=== PATIENT | male | born 1990 | race African-American/Black ===

== ENCOUNTER 2023-02-10 15:01 | Inpatient (IN) ==
--- NOTE | 2023-02-10 15:14 | Emergency Department Note ---
Impression & Plan Depression with suicidal ideation, Alcohol abuse, Acute hypokalemia ED Provider Note NAME: CHARLY PEREA AGE: 32 SEX: M : 1990 ARRIVES VIA: Walk-In INFORMANT: Patient, ED PROVIDER(S): Louie Waters MD CHIEF COMPLAINT: Concern for mental wellness MEDICAL DECISION MAKING: Patient presents due to concern for mental wellness. IV was established and blood work is obtained along with urinalysis urine drug screen as well as toxicology screens. Patient was ordered IV fluids. Patient was deemed clinically sober after a period of monitoring as the patient's alcohol was elevated at 200. Patient has mild leukopenia which may be secondary to the patient's chronic HIV history. Patient's H&H and platelet count are unremarkable. Kidney function unremarkable mild transaminitis likely secondary to the patient's drinking. TSH is normal. The patient was ordered potassium replacement. Patient was accepted to [facility] for voluntary inpatient treatment. Prior /Outside records reviewed: None Differential diagnosis: Mood disorder, infection, hypoglycemia, electrolyte abnormalities, dehydration, medication side effect among others were considered. Diagnostics, as interpreted by me: ECG: None Medical decision rules: Suicide risk assessment HPI: Patient presents due to concern for mental wellness issue. The patient states that he was thinking about overdosing on medications. Patient is currently masters PhD student who states that setting has been difficult and that he is considering dropping out. The patient has been here for over a year. Patient states that he has not been taking his medications including his antivirals for HIV. Patient states that a week ago he did attempt overdose taking pills as well as foods that he is allergic to. Patient denies any HI. The patient reports that he has been hearing sounds as though some days knocking at the door but when he goes to investigate this there is nobody there and more when asking someone else he was told that there was no knock on the door. Patient denies any HI. The patient does drink alcohol and believes that he has been drinking 4 gallons of alcohol since Thursday. Prior to this patient had not been drinking for 2 weeks. Patient denies any tobacco or drug use. Patient is originally from [place]. Patient denies any access to guns or weapons. Patient states that his sleep has been poor and his appetite has been poor as well. PAST MEDICAL HISTORY: See Below PAST SURGICAL HISTORY: See Below SOCIAL HISTORY: See Below HOME MEDICATIONS: See Below ALLERGIES: See Below VITALS: See Below PHYSICAL EXAMINATION: GENERAL: NAD, non-toxic. EYE EXAM: Normal conjunctiva. PERRL, no anisocoria and EOM's grossly intact w/o pain. OROPHARYNX: Moist mucus membranes, grossly normal dentition. NECK: Supple, no nuchal rigidity, no adenopathy, non-tender. No signs of meningismus. FROM of the neck with good chin to chest and neck extension. No stridor. LUNGS: Clear to auscultation. Normal chest wall mechanics. HEART: NSR, no MRG. ABDOMEN: Abdomen soft, non-tender, no masses, no rebound or guarding. BACK: No CVA TTP. SKIN: No rashes and no bruising. UPPER EXTREMITIES: Upper extremities are grossly normal. LOWER EXTREMITIES: Grossly normal, no edema. NEURO EXAM: A&O x3, cranial nerves II-XII grossly intact, normal speech, moves all 4 extremities. Psych: Positive SI with plan, denies HI, auditory hallucinations Past Med/Surg History Medical History (Updated 02/11/23 @ 17:46 by Louie Waters MD) HIV (human immunodeficiency virus infection) Social History Smoking Status: Never smoker Preferred Language: Uzbek Communication Ability: Effective Plush Finisher Required: No Beliefs That Will Affect Care: None Feels Safe at Home: No Gender Identity: Male Assistive Devices: None Allergies Allergies Allergy/AdvReac Type Severity Reaction Status Date / Time No Known Allergies Allergy Unverified 02/10/23 22:15 Home Meds Home Medications Medication Instructions Recorded Confirmed bictegravir 50 mg-emtricitabine 1 tab PO DAILY 02/10/23 02/10/23 200 mg-tenofovir alafenam 25 mg tablet (Biktarvy) pravastatin 40 mg tablet 40 mg PO DAILY 02/10/23 02/10/23 Results & Data (ED) Vital Signs Vital Signs - 24 hr 02/10/23 19:20 02/10/23 21:41 Temperature 36.7 C Temperature Source Oral Pulse Rate [Left Finger] 89 Pulse Rhythm [Left Finger] Regular Pulse Strength [Left Finger] Normal Respiratory Rate 18 Respiratory Effort / Characteristics Non-Labored Respiratory Depth Normal Respiratory Pattern Regular Blood Pressure [Right Arm] 138/89 Blood Pressure Mean [Right Arm] 105 Blood Pressure Position [Right Arm] Sitting Pulse Oximetry 98 Oxygen Delivery Method Room Air Room Air Home Medications Current Medication List: was personally reviewed by me Laboratory Data Attestation: I reviewed the patient's lab results. 02/10/23 15:50 02/11/23 08:24 Lab Results 02/10/23 02/10/23 02/10/23 Range/Units 15:50 15:50 15:50 WBC 4.18 L (4.8-10.8) K/ul RBC 5.72 (4.70-6.10) M/uL Hgb 17.5 (14.0-18.0) g/dl Hct 49.1 (42.0-52.0) % MCV 85.8 (80.0-100.0) fL MCH 30.6 (25.0-34.0) pg MCHC 35.6 (32.0-36.0) g/dL RDW Std Deviation 43.2 (36.4-46.3) fL RDW Coeff of Brett 13.9 (11.5-14.5) % Plt Count 315 (130-400) K/uL MPV 9.7 (9.4-12.4) fL Immature Gran % (Auto) 0.7 % Neut % (Auto) 50.5 % Lymph % (Auto) 30.1 % [place] % (Auto) 12.9 % Eos % (Auto) 4.8 % Baso % (Auto) 1.0 % Neut # (Auto) 2.11 (1.40-6.50) K/uL Lymph # (Auto) 1.26 (1.20-3.40) K/uL [place] # (Auto) 0.54 (0.11-0.59) K/uL Eos # (Auto) 0.20 (0.00-0.50) K/uL Baso # (Auto) 0.04 (0.00-0.20) K/uL Immature Gran # (Auto) 0.03 (0.01-0.20) K/uL Sodium 137 (136-145) mmol/L Potassium 3.1 L (3.5-5.1) mmol/L Chloride 99 (98-107) mmol/L Carbon Dioxide 22 (21-32) mmol/L Anion Gap 16 H (3-11) BUN 4 L (6-23) mg/dl Creatinine 0.99 (0.6-1.4) mg/dl Est Cr Clr Drug Dosing 129.5 ml/min Est GFR ( Amer) 115.5 ml/min Est GFR (Non-Af Amer) 99.7 ml/min BUN/Creatinine Ratio 4.0 L (10-20) Glucose 91 (70-99(Fasting)) mg/dl Calcium 9.4 (8.6-10.3) mg/dl Total Bilirubin 0.8 (0.2-1.0) mg/dl AST 82 H (13-39) U/L ALT 126 H (7-52) U/L Alkaline Phosphatase 82 (34-104) U/L Total Protein 7.6 (6.0-8.3) gm/dl Albumin 4.2 (3.4-5.0) gm/dl Globulin 3.4 (2.5-4.0) gm/dl Albumin/Globulin Ratio 1.2 (0.9-2) TSH 1.134 (0.300-4.500) uIu/ml Salicylates (3.0-30) mg/dl Acetaminophen (10-30) ug/ml Ethyl Alcohol mg/dL (<10.0) mg/dl SARS-CoV-2, RNA, NAAT (NEGATIVE) 02/10/23 02/10/23 02/10/23 Range/Units 15:50 15:50 20:08 WBC (4.8-10.8) K/ul RBC (4.70-6.10) M/uL Hgb (14.0-18.0) g/dl Hct (42.0-52.0) % MCV (80.0-100.0) fL MCH (25.0-34.0) pg MCHC (32.0-36.0) g/dL RDW Std Deviation (36.4-46.3) fL RDW Coeff of Brett (11.5-14.5) % Plt Count (130-400) K/uL MPV (9.4-12.4) fL Immature Gran % (Auto) % Neut % (Auto) % Lymph % (Auto) % [place] % (Auto) % Eos % (Auto) % Baso % (Auto) % Neut # (Auto) (1.40-6.50) K/uL Lymph # (Auto) (1.20-3.40) K/uL [place] # (Auto) (0.11-0.59) K/uL Eos # (Auto) (0.00-0.50) K/uL Baso # (Auto) (0.00-0.20) K/uL Immature Gran # (Auto) (0.01-0.20) K/uL Sodium (136-145) mmol/L Potassium (3.5-5.1) mmol/L Chloride (98-107) mmol/L Carbon Dioxide (21-32) mmol/L Anion Gap (3-11) BUN (6-23) mg/dl Creatinine (0.6-1.4) mg/dl Est Cr Clr Drug Dosing ml/min Est GFR ( Amer) ml/min Est GFR (Non-Af Amer) ml/min BUN/Creatinine Ratio (10-20) Glucose (70-99(Fasting)) mg/dl Calcium (8.6-10.3) mg/dl Total Bilirubin (0.2-1.0) mg/dl AST (13-39) U/L ALT (7-52) U/L Alkaline Phosphatase (34-104) U/L Total Protein (6.0-8.3) gm/dl Albumin (3.4-5.0) gm/dl Globulin (2.5-4.0) gm/dl Albumin/Globulin Ratio (0.9-2) TSH (0.300-4.500) uIu/ml Salicylates < 3.0 L (3.0-30) mg/dl Acetaminophen < 3 L (10-30) ug/ml Ethyl Alcohol mg/dL 201.0 H (<10.0) mg/dl SARS-CoV-2, RNA, NAAT NEGATIVE (NEGATIVE) Administered Medications Discontinued Medications Sodium Chloride (Nss) 1,000 mls @ 999 mls/hr IV .Q1H1M WALKER Stop: 02/10/23 16:45 Last Infusion: 02/10/23 18:47 Dose: 0 mls/hr Documented By: Admin: 02/10/23 15:59 Dose: 999 mls/hr Documented By: MYRANDA Lorazepam (Lorazepam 2 Mg/1 Ml Vial) 0.5 mg IV NOW STA Stop: 02/10/23 15:39 Last Admin: 02/10/23 16:01 Dose: 0.5 mg Documented By: MYRANDA Potassium Chloride (Potassium Chloride Crtab 20 Meq Tabcr) 40 meq PO NOW STA Stop: 02/10/23 21:03 Last Admin: 02/10/23 21:08 Dose: 40 meq Documented By: OAM Discharge Plan Visit Data Chief Complaint: Mental Health Evaluation Stated Complaint: REF BY , DONNAE ED Provider: Louie Waters Discharge Problem: Depression with suicidal ideation, Alcohol abuse, Acute hypokalemia Patient Disposition: Admitted As Inpatient Discharge Instructions Interventions: ED Discharge Assessment Last Done: 02/10/23 21:41
[2023-02-10] MEDS ORDERED: LORazepam 2 MG/1 ML VIAL IV STA (15:38)
[2023-02-10] MEDS ORDERED: SODIUM CHLORIDE 0.9% 1,000 ML IV SCH (15:45)
[2023-02-10 16:23] LABS: Appearance Urine Clear (Clear); Bilirubin Urine Negative (Negative); Blood Urine Negative (Negative); Color Urine Yellow; Glucose Urine UA Negative (Negative); Ketones Urine Negative (Negative); Leukocyte Esterase Urine Negative (Negative); Nitrite Urine Negative (Negative); Protein Urine Negative (Negative); Specific Gravity Urine 1.003 (1.000-1.030); Urobilinogen Urine Negative (Negative); pH Urine 6.5 (4.5-7.5)
[2023-02-10 16:27] LABS: Basophils # (auto) 0.04 K/uL (0.00-0.20); Eosinophils % (auto) 4.8 %; Hematocrit (blood only) 49.1 % (42.0-52.0); Hemoglobin 17.5 g/dl (14.0-18.0); Immature Granulocytes # (auto) 0.03 K/uL (0.01-0.20); Immature Granulocytes % (auto) 0.7 %; Lymphocytes # (auto) 1.26 K/uL (1.20-3.40); Lymphocytes % (auto) 30.1 %; Mean Corpuscular Hemoglobin 30.6 pg (25.0-34.0); Mean Corpuscular Hgb Conc 35.6 g/dL (32.0-36.0); Mean Corpuscular Volume 85.8 fL (80.0-100.0); Mean Platelet Volume 9.7 fL (9.4-12.4); Monocytes # (auto) 0.54 K/uL (0.11-0.59); Monocytes % (auto) 12.9 %; Neutrophils # (auto) 2.11 K/uL (1.40-6.50); Neutrophils % (auto) 50.5 %; Platelet Count 315 K/uL (130-400); RDW Coefficient of Variation 13.9 % (11.5-14.5); RDW Standard Deviation 43.2 fL (36.4-46.3); Red Blood Count 5.72 M/uL (4.70-6.10); White Blood Count 4.18 K/ul (4.8-10.8)
[2023-02-10 16:45] LABS: Acetaminophen < 3 ug/ml (10-30); Salicylate < 3.0 mg/dl (3.0-30)
[2023-02-10 16:56] LABS: Amphetamines+Metham, Urine Neg (Neg); Barbiturates, Urine Neg (Neg); Benzodiazepine, Urine Neg (Neg); Cocaine, Urine Neg (Neg); MDMA (Ecstacy), Urine Neg (Neg); Methadone, Urine Neg (Neg); Opiate, Urine Neg (Neg); Phencyclidine, Urine Neg (Neg)
[2023-02-10 16:58] LABS: Albumin Globulin Ratio 1.2 (0.9-2); Albumin Level 4.2 gm/dl (3.4-5.0); Bilirubin,Total 0.8 mg/dl (0.2-1.0); Calcium 9.4 mg/dl (8.6-10.3); Creatinine Clr Calc Pharmacy 129.5 ml/min; Est GFR (African American) 115.5 ml/min; Est GFR (Non-African American) 99.7 ml/min; Globulin 3.4 gm/dl (2.5-4.0); Potassium 3.1 mmol/L (3.5-5.1); Total Protein 7.6 gm/dl (6.0-8.3)
[2023-02-10] MEDS ORDERED: LORazepam 1 MG TAB PO PRN ×3 (20:55)
[2023-02-10] MEDS ORDERED: Ativan PO Alcohol Withdrawal--Active Protocol PO PRN (20:55)
[2023-02-10] MEDS ORDERED: POTASSIUM CHLORIDE CRTAB 20 MEQ TABCR PO STA (21:02)
[2023-02-10] MEDS ORDERED: MAGNESIUM HYDROXIDE SUSP 30 ML UDC PO PRN (22:15)
[2023-02-10] MEDS ORDERED: ACETAMINOPHEN 325 MG TAB PO PRN (22:15)
[2023-02-10] MEDS ORDERED: BISMUTH SUBSALICYLATE LIQD 236 ML PO PRN (22:15)
[2023-02-10] MEDS ORDERED: ALUMINUM/MAGNESIUM SUSP 30 ML UDC PO PRN (22:15)
[2023-02-10] MEDS ORDERED: hydrOXYzine HCl 25 MG TAB PO PRN ×2 (22:15)
[2023-02-10] MEDS ORDERED: SODIUM CHLORIDE 0.65% NA SOLN 45 ML (OCEAN) PRN (22:15)
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
--- NOTE | 2023-02-11 13:11 | Electrocardiogram Report ---
Test Reason : Blood Pressure : / mmHG Vent. Rate : 091 BPM Atrial Rate : 091 BPM P-R Int : 142 ms QRS Dur : 080 ms QT Int : 356 ms P-R-T Axes : 043 036 018 degrees QTc Int : 437 ms Normal sinus rhythm Nonspecific T wave abnormality Abnormal ECG No previous ECGs available Confirmed by Chris Arredondo ([id number]) on 02/11/2023 1:10:39 PM Referred By: REFERRED SELF Confirmed By:Chris Arredondo
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
== END 2023-02-11 13:43 | disposition home or self-care (01) | DRG 882 ==
LOC: ED 15:01 → 3S 21:41